=== PATIENT | female | born 1970 | race Two or more races ===

== ENCOUNTER 2017-10-04 19:10 | Emergency (ER) | payer OTHER ==
[~2017-10-04] VITALS: Ht 175.3 cm; Wt 68.5 kg
--- NOTE | 2017-10-04 19:30 | NUR ---
PT STATES "I AM DEPRESSED AND WANT TO HURT MYSELF". PT +SI, -HI. NO PLAN. VSS. SKIN WNL. NO S/S OF ACUTE DISTRESS NOTED. PT IS AAOX4. PT NOTED TO HAVE STEADY GAIT ON AMBULATION. 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 PT SAFETY AND COMFORT MEASURES IN PLACE. AWAITING MD FOR EVAL.
[2017-10-04 20:27] LABS: BASOPHILS % (AUTO) 0.6 % (0.0-2.0); EOSINOPHILS % (AUTO) 0.2 % (0.0-6.0); HEMATOCRIT 35 % (33-45); HEMOGLOBIN 11.8 g/dL (11.5-14.8); LYMPHOCYTES # (AUTO) 1.6 /CMM (0.8-4.8); LYMPHOCYTES % (AUTO) 26.2 % (20.0-44.0); MEAN CORPUSCULAR HGB CONC 34 g/dl (31.0-36.0); MEAN CORPUSCULAR VOLUME 86 fL (82-100); MONOCYTES # (AUTO) 0.4 /CMM (0.1-1.30); MONOCYTES % (AUTO) 5.9 % (2.0-12.0); NEUTROPHILS # (AUTO) 4.3 /CMM (1.8-8.9); NEUTROPHILS % (AUTO) 67.1 % (43.0-81.0); PLATELET COUNT (AUTO) 420 /CMM (150-450); RDW COEFFICIENT OF VARIATION 16.4 (11.5-15.0); RED BLOOD CELL COUNT(AUTO) 4.05 MIL/uL (4.0-5.2); WHITE BLOOD COUNT (AUTO) 6.3 K/uL (4.3-11.0)
[2017-10-04 20:37] LABS: CARBON DIOXIDE 20 mmol/L (21-32); CHLORIDE 111 mmol/L (98-107); CREATININE 0.9 mg/dL (0.6-1.3); GLUCOSE 109 mg/dL (74-106); POTASSIUM 3.8 mmol/L (3.5-5.1); SODIUM SERUM 145 mmol/L (136-145); UREA NITROGEN, BLOOD 11 mg/dL (7-18)
[2017-10-04 20:47] LABS: APPEARANCE,URINE Clear (CLEAR); BILIRUBIN,URINE Negative (NEGATIVE); BLOOD, URINE Negative Ery/uL (NEGATIVE); COLOR,URINE Yellow (YELLOW); KETONES,URINE Negative (NEGATIVE); LEUKOCYTE ESTERASE ,URINE Negative (NEGATIVE); NITRITE, URINE Negative (NEGATIVE); PROTEIN,URINE Negative (NEGATIVE); UGLUCOSE Negative (NEGATIVE); UROBILINOGEN,URINE 0.2 EU/dL (0.2)
[2017-10-04 20:50] LABS: ACETAMINOPHEN < 10 ug/ml (10-30); ALANINE AMINOTRANSFERASE 18 U/L (12-78); ALBUMIN 3.6 g/dL (3.4-5.0); ALCOHOL, BLOOD 318 mg/dL (0-0); ALKALINE PHOSPHATASE 65 U/L (46-116); ASPARTATE AMINOTRANSFERASE 17 U/L (15-37); BILIRUBIN,DIRECT 0.1 mg/dL (0.0-0.2); BILIRUBIN,TOTAL 0.3 mg/dL (0.2-1.0); TOTAL PROTEIN, SERUM 7.6 g/dL (6.4-8.2)
[2017-10-05] MEDS ORDERED: oxyCODONE/APAP (5/325 MG) 1 UDTAB TABLET PO ONE (03:00)
[2017-10-05] MEDS ORDERED: ONDANSETRON 4 MG TAB.RAPDIS SL ONE (03:00)
[2017-10-05] MEDS ORDERED: oxyCODONE/APAP (5/325 MG) 1 UDTAB TABLET ONE (03:07)
[2017-10-05] MEDS ORDERED: ONDANSETRON 4 MG TAB.RAPDIS ONE (03:08)
--- NOTE | 2017-10-05 03:14 | NUR ---
Patient discharged to home in stable condition. Written and verbal after care instructions given. Patient verbalizes understanding of instruction. VSS UPON DISCHARGE. PT AMBULATED WITH STEADY GAIT OUT OF ER
[2017-10-05 03:15] VITALS: BP 139/98
== END 2017-10-05 03:16 | disposition home or self-care (01) ==
LOC: ER 19:11
DX: S50.01XA Contusion of right elbow, initial encounter (principal); F10.229 Alcohol dependence with intoxication, unspecified; F32.9 Major depressive disorder, single episode, unspecified; Z60.2 Problems related to living alone; X58.XXXA Exposure to other specified factors, initial encounter; Y93.89 Activity, other specified; Y92.89 Other specified places as the place of occurrence of the external cause; Y99.8 Other external cause status
CPT/HCPCS: 36415; 73080-TC; 80048-TC; 80076-TC; 80305; 81000-TC; 84703-TC; 85025-TC; A4606; G0480; Q0162; Z7610

== ENCOUNTER 2021-02-24 16:52 | Emergency (ER) | payer MEDICAID, OTHER ==
[~2021-02-24] VITALS: Ht 167.6 cm; Wt 68.0 kg
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
--- NOTE | 2021-02-24 17:22 | NUR ---
[employer] AT PT'S BEDSIDE SCREENING FOR DUI
--- NOTE | 2021-02-24 17:47 | NUR ---
[facility] JUDGE AT PT'S BEDSIDE
[2021-02-24] MEDS ORDERED: BACI30OI9 TP (17:59)
[2021-02-24] MEDS ORDERED: IBUP-1955 PO (17:59)
--- NOTE | 2021-02-24 18:36 | NUR ---
Patient discharged in stable condition. Written and verbal after care instructions given. Patient and the officers verbalize understanding of instruction.
[2021-02-24 18:37] VITALS: BP 116/72
== END 2021-02-24 18:37 ==
LOC: ER 16:56
DX: S20.314A Abrasion of middle front wall of thorax, initial encounter (principal); F32.9 Major depressive disorder, single episode, unspecified; Z60.2 Problems related to living alone; Z79.899 Other long term (current) drug therapy; V49.49XA Driver injured in collision with other motor vehicles in traffic accident, initial encounter; Y93.89 Activity, other specified; Y92.413 State road as the place of occurrence of the external cause; Y99.8 Other external cause status

== ENCOUNTER 2024-03-13 16:51 | Emergency (ER) | payer MEDICAID ==
[~2024-03-13] VITALS: Ht 165.1 cm; Wt 60.3 kg
[~2024-03-13 16:51] MED LIST: BACI30OI9 TP; IBUP-1955 PO
[2024-03-13] MEDS: TRANEXAMIC ACID 1,000 MG/10 ML VIAL NS ONE (18:26)
[2024-03-13] MEDS: OXYMETAZOLINE HCL NASAL SPRAY 30 ML BOTTLE NS ONE (18:26)
[2024-03-13] MEDS: LORAZEPAM INJ 2 MG/ML VIAL IV ONE (21:00)
[2024-03-13] MEDS: IV NS 0.9% 1,000 ML BAG IV ONE (21:00)
[2024-03-13] MEDS ORDERED: LORAZEPAM INJ 2 MG/ML VIAL ONE (21:04)
[2024-03-13 21:09] LABS: BASOPHILS % (AUTO) 0.5 % (0.0-2.0); HEMATOCRIT 36 % (33-45); HEMOGLOBIN 11.7 g/dL (11.5-14.8); LYMPHOCYTES # (AUTO) 2.4 K/uL (0.8-4.8); LYMPHOCYTES % (AUTO) 24.4 % (20.0-44.0); MEAN CORPUSCULAR HEMOGLOBIN 29 PG (26.0-33.0); MEAN CORPUSCULAR HGB CONC 33 g/dl (31.0-36.0); MEAN CORPUSCULAR VOLUME 89 fL (82-100); MONOCYTES # (AUTO) 0.6 K/uL (0.1-1.30); MONOCYTES % (AUTO) 6.4 % (2.0-12.0); NEUTROPHILS # (AUTO) 6.7 K/uL (1.8-8.9); NEUTROPHILS % (AUTO) 68.7 % (43.0-81.0); PLATELET COUNT (AUTO) 387 K/uL (150-450); RED CELL DISTRIBUTION WIDTH 15.6 % (11.5-15.0); WHITE BLOOD COUNT (AUTO) 9.7 K/uL (4.3-11.0)
[2024-03-13] MEDS ORDERED: SODI88SP18 BNOSTRILS (21:50)
[2024-03-13 21:53] LABS: INR 0.98 (0.91-1.10); PARTIAL THROMBOPLASTIN TIME 23.4 SEC (24.3-34.3); PROTHROMBIN TIME 10.4 SECS (9.2-11.1)
[2024-03-13 22:17] VITALS: BP 141/86; TEMP 98; O2SAT 98
[2024-03-13 22:22] LABS: CALCIUM, SERUM 9.5 mg/dL (8.5-10.1); POTASSIUM 4.4 mmol/L (3.5-5.1)
[2024-03-13] MEDS ORDERED: ONDANSETRON HCL/PF - ER 4 MG/2 ML VIAL IV ONE (22:30)
== END 2024-03-13 22:18 | disposition left against medical advice (07) ==
LOC: ER 16:51
DX: R04.0 Epistaxis (principal); R00.0 Tachycardia, unspecified; R11.10 Vomiting, unspecified; R51.9 Headache, unspecified; F41.9 Anxiety disorder, unspecified; Z60.2 Problems related to living alone
CPT/HCPCS: 99285; 96374; 30905; 96361; 85025; 80048; 36415; 85730; 93005; J2060; J2405; J7030; A4223